=== PATIENT | male | born 1975 | race Two or more races ===

== ENCOUNTER 2023-11-02 09:51 | Emergency (ER) | payer OTHER ==
[~2023-11-02] VITALS: Ht 190.5 cm; Wt 152.0 kg
[~2023-11-02 09:51] MED LIST: COZAAR100 MG PO; DURICEF 500 MG CAPSULE PO; INTEGRA PLUS C1 EACH PO; OXYC1TAB9 PO; TRAM1TAB PO; XARELTO10 MG PO
[2023-11-02] MEDS ORDERED: LOSARTAN POTASS50 MG PO (10:13)
[2023-11-02] MEDS ORDERED: METFORMIN HCL500 M3 PO (10:14)
[2023-11-02 11:50] LABS: HEMATOCRIT 40.9 % (39.0-48.0); HEMOGLOBIN 13.7 g/dL (13-16.00); MEAN CELL VOLUME 77.7 fL (80.0-100.00); MEAN CORPUSCULAR HGB CONC 33.5 g/dl (32.0-36.0); PLATELET COUNT 222 K/uL (150-450); RED BLOOD COUNT 5.27 M/uL (4.00-6.00); RED CELL DISTRIBUTION WIDTH 15.4 % (11.5-14.5)
[2023-11-02 12:23] LABS: URINE APPEARANCE Clear; URINE BILIRRUBIN Negative (NEGATIVE); URINE BLOOD Negative; URINE COLOR Yellow; URINE LEUKOCYTE Negative; URINE NITRATE Negative; URINE PROTEIN Negative (NEGATIVE); URINE UROBILINOGEN 0.2 E.U./dl
[2023-11-02 12:25] LABS: ALBUMIN 3.7 gm/dL (3.4-5.0); BILIRUBIN TOTAL 0.64 mg/dL (0.3-1.2); CREATININE SERUM 0.99 mg/dL (0.70-1.30); GFR 80.02; GLOBULINA 4.3 G/DL (2.4-3.5); POTASSIUM 4.12 mEq/L (3.5-5.1)
[2023-11-02 12:26] LABS: URINE BACTERIA 55.4 uL (0.0-1933); URINE EPITHELIAL CELLS 5.2 uL (0.0-38.8); URINE RBC 2.5 uL (0.0-20.8); URINE WBC 20.2 uL (0.0-23.2)
[2023-11-02 12:30] LABS: URINE GLUCOSE >=1000 MG/DL (NEGATIVE)
[2023-11-02 12:42] LABS: INR 1.02; PARTIAL THROMBOPLASTIN TIME 24.5 SECONDS (22.0-34.0); PROTHROMBIN TIME 10.7 SECONDS (9.0-11.5)
[2023-11-02] MEDS ORDERED: cloNIDine HCL 0.2 MG TABLET PO ONE (13:15)
[2023-11-02] MEDS ORDERED: INSULIN REGULAR, HUMAN 1,000 UNIT/10 ML UNITS SUBCUTANEO ONE (13:15)
[2023-11-02] MEDS ORDERED: INSULIN REGULAR, HUMAN 1,000 UNIT/10 ML UNITS IV ONE (15:45)
== END 2023-11-02 16:21 | disposition home or self-care (01) ==
LOC: ER 09:52
PROVIDERS: Emergency Medicine
DX: E11.65 Type 2 diabetes mellitus with hyperglycemia (principal); Z79.84 Long term (current) use of oral hypoglycemic drugs; I10 Essential (primary) hypertension